=== PATIENT | male | born 1950 | race Caucasian/White ===

== ENCOUNTER 2021-05-13 17:34 | Emergency (ER) | payer BC ==
[2021-05-13 19:34] LABS: HEMOGLOBIN 14.9 gm/dl (14.0-17.5); RED BLOOD COUNT 4.54 M/UL (4.20-5.50); WHITE BLOOD COUNT 7.8 K/UL (4.5-11.0)
[2021-05-13 19:45] LABS: BUN/CREATININE RATIO 15 (0-10)
[2021-05-13] MEDS ORDERED: MEDROL4 MG PO (20:26)
[2021-05-13] MEDS ORDERED: ZITHROMAX500 MG PO (20:26)
[2021-05-13] MEDS ORDERED: VENTOLIN HFA 66.7 GM INH (20:26)
[2021-05-13] MEDS ORDERED: TESSALON PERLE100 MG PO (20:26)
== END 2021-05-13 21:35 | disposition home or self-care (01) ==
LOC: ER1 17:34
PROVIDERS: Preventive Medicine Occupational Medicine
DX: U07.1 COVID-19 (principal); J12.82 Pneumonia due to coronavirus disease 2019; E11.9 Type 2 diabetes mellitus without complications; F17.210 Nicotine dependence, cigarettes, uncomplicated; Z85.038 Personal history of other malignant neoplasm of large intestine
CPT/HCPCS: 36600; 71045; 80053; 82803; 83605; 85025; 85652; 86140; 94664; 94760; 96365; 96366; 96375; 99285; J0456; J1100; J7030